=== PATIENT | female | born 1940 | race Caucasian/White ===

== ENCOUNTER 2019-12-26 11:50 | Outpatient (RCR) | payer MEDICARE ==
[2019-12-26] MEDS ORDERED: LIDOCAINE/PRILOCAINE 2.5-2.5% KIT ONE (18:18)
== END 2020-01-19 ==
LOC: WCC 11:50
PROVIDERS: ATTEND Family Medicine
DX: S21.002A Unspecified open wound of left breast, initial encounter (principal); Y92.410 Unspecified street and highway as the place of occurrence of the external cause; Z85.3 Personal history of malignant neoplasm of breast